=== PATIENT | male | born 1980 | race Two or more races ===

== ENCOUNTER 2024-07-08 14:48 | Outpatient (AMB) | payer MEDICAID, SELFPAY ==
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
--- OUTSIDE RECORDS SUMMARY | 2024-07-08 15:27 | XMS_ITS | Clinical Summary ---
Author Organization [facility] Address [address] [place] [address] Care Team Providers Care Multi Disciplined Language Analyst Name Role Phone Grace Marion PA-C Primary Care Provider [phone] Source Comments PLEASE NOTE, if this patient is a minor, it may be UNLAWFUL to discuss sensitive information that is contained in these records (such as FAMILY PLANNING, MENTAL HEALTH or SUBSTANCE ABUSE) with the minor patient's parent or other person without the patient's specific authorization.[facility] Allergies Active Allergy Reactions Criticality Noted Date Comments Cats 09/18/2022 [place] 08/17/2020 [place] Seeds Anaphylaxis 03/30/2015 Seen in ER 03/15/15 for allergic reaction after eating sun flower seeds. Discharge dx Anaphylaxis due to ingested food Medications EPINEPHrine (EPIPEN) 0.3 mg/0.3 mL pen injectorIndicati ons:Allergic, initial encounter Inject 0.3 mL into the muscle as needed for anaphylaxis 1 Each 3 1 Active naproxen (NAPROSYN) 500 mg tabletIndication s:Bilateral hip pain TAKE 1 TABLET BY MOUTH TWICE A DAY NEEDED FOR PAIN 60 Tablet 1 3 Active triamcinolone (KENALOG) 0.025 % creamIndications :Rash and nonspecific skin eruption Apply topically 2 (two) times daily 15 g 4 Active albuterol HFA 90 mcg/actuation inhalerIndicatio ns:Moderate persistent asthma without complication (HHS-HCC) Inhale 2 Puffs into the lungs every 4 (four) hours as needed for wheezing 1 Each 4 Active budesonide-formo teroL (SYMBICORT) 160-4.5 mcg/actuation inhalerIndicatio ns:Moderate persistent asthma without complication (HHS-HCC) Inhale 2 Puffs into the lungs 2 (two) times daily 10.2 g 3 4 Active montelukast (SINGULAIR) 10 mg tabletIndication s:Moderate persistent asthma without complication (HHS-HCC) TAKE 1 TABLET BY MOUTH EVERYDAY AT BEDTIME 90 Tablet 1 5 Active cyanocobalamin (VITAMIN B-12) 1,000 mcg tabletIndication s:Low serum vitamin B12 Take 1 Tablet by mouth once daily 90 Tablet 1 5 Active ferrous sulfate 325 mg (65 mg iron) tabletIndication s:Low iron stores Take 1 Tablet by mouth every other day 90 Tablet 5 Active Active Problems Problem Noted Date Diagnosed Date Prediabetes 05/31/2024 History of cocaine use: quit 03/202208/17/2020 Current moderate episode of major depressive disorder without prior episode (HCC-CMS) 08/17/2020 Moderate persistent asthma without complication (HHS-HCC) 08/17/2020 Hearing impaired 11/26/2012 Overview (11/26/2012): Since childhood Resolved Problems Problem Noted Date Diagnosed Date Resolved Date Fungus infection 04/02/2013 10/09/2016 Dry skin 04/02/2013 08/17/2020 GERD (gastroesophageal reflux disease) 11/26/2012 08/17/2020 Insomnia 10/20/2012 10/09/2016 ASTHMA MILD INTERMITTENT 10/20/2012 Encounters Date Type Department Care Team Description 05/31/2024 Results Follow-Up [address] [phone] Grace Marion PA-C Low serum vitamin B12 (Primary Dx); Low iron stores 05/28/2024 3:00 PM EDT Office Visit [address] [phone] Grace Marion PA-C Annual physical exam (Primary Dx); Moderate persistent asthma without complication; Vitamin D deficiency; Snoring disorder; Daytime sleepiness; Immunization due; Prediabetes from Last 3 Months Immunizations Immunization Administration Dates Next Due DTAP (DAPTACEL),5 PERTUSSIS ANTIGENS 08/05/2015, 08/05/2015 Hep B,adult,adjuvanted (HEPLISAV) 05/28/2024, INFLUENZA, SEASONAL, INJECTABLE 11/26/2012,03/05,01/27/2008 Influenza (FLUBLOK),recombinant,injectable,preservati ve Free 01/16/2024 Influenza, Whole 03/06/2006 PFIZER COVID VACCINE, PURPLE CAP, 12+ 11/28/2020 PNEUMOCOCCAL CONJUGATE PCV 20 (Prevnar) 05/29/19 25 PNEUMOCOCCAL POLYSACCHARIDE PPV23 (Pneumovax 23) 03/06/2006 Family History Medical History Relation Name Comments Diabetes Father Hypertension Father Relation Name Status Comments Brother Alive Father Mother Alive Sister Alive Social History Tobacco Use Types Packs/Day Years Used Date Smoking Tobacco: Never Smokeless Tobacco: Never Tobacco Cessation:Counseling Given: Yes Alcohol Use Standard Drinks/Week Comments Not Currently 0 (1 standard drink = 0.6 oz pur e alcohol) socially Social Connections Answer Date Recorded Connectedness 1 05/28/2024 Financial Resource Strain Answer Date R ecorded Financial Resource Strain 1 2024 Stress Answer Date Recorded Stress 1 05/28/2024 Physical Activity Answer Date Recorded Physical Activity 0 10/19/2018 Food Insecurity Answer Date Recorded Food 1 05/28/2024 Transportation Needs Answer Date Record ed Transportation 1 05/28/2024 Housing Stability Answer Date Recorded Housing 1 05/28/2024 Safety and Environment Answer Date Phong rded Safety 0 10/19/2018 Utilities Answer Date Recorded Utilities 1 05/28/2024 Employment Answer Date Recorded Stress 0 05/21/2023 Sex and Gender Information Value Date Recorded Sex Assigned at Male 10/01/2017 11:37 AM PDT Legal Sex Male 11:36 AM PDT Gender Identity Male 10/01/2017 11:37 AM PDT Sexual Orientation Straight 10/01/2017 11 :37 AM PDT Last Filed Vital Signs Vital Sign Reading Time Taken Comments Blood Pressure 102/80 05/28/2024 3:02 PM EDT Pulse 103 05/28/2024 3:02 PM EDT Temperature 36.7 ??C (98.1 ??F) 05/28/2024 3:02 PM ED T Respiratory Rate 16 05/28/2024 3:02 PM EDT Oxygen Saturation 97% 05/28/2024 3:02 PM EDT Inhaled Oxygen Concentration - - Weight 75.6 kg (166 lb 11.2 oz) 05/28/2024 3:02 PM EDT Height 167.6 cm (5' 6 ) 09/18/2022 5:11 PM EDT Body Mass Index 26.91 09/18/2022 5:11 PM EDT Plan of Treatment Health Maintenance Due Date Last Done Comments Anxiety Screening 1980 [id number] ( season) 2023 11/28/2020, 09/19/2020 CT Colonography 01/11/2024 Colonoscopy 01/11/2024 Colorectal Cancer Screening 01/11/2024 FIT/gFOBT 01/11/2024 Fecal DNA 01/11/2024 Flexible Sigmoidoscopy 01/11/2024 Alcohol and Drug Screen 03/03/2024 05/21/19 24, 09/18/2022, 08/17/2020, Additional history exists Depression Monitoring 08/28/2024 05/28/2024 , 01/16/2024, 10/24/2023, Additional history exists Syphilis Screening 08/30/2024 05/21/2023 Postponed from 05/20/2024 (Patient postponement) Annual Preventive Care Visit 05/28/2025 05/28/2024, 06/19/2018, 10/09/2016, Additional history exists Diabetes Screening 05/28/2025 05/28/2024, 0 05/28/2024, 05/21/2023, Additional history exists Hypertension Screening (#1) 05/28/2025 Tobacco Screening 05/28/2025 05/28/2024 Imm-DTaP/Tdap/Td (3 - Tdap) 08/04/2025 08/05/2015, 0 08/05/2015 Lipid Screening 05/28/2029 05/28/2024, 05/02, 08/17/2020, Additional history exists Hepatitis C Screening Completed 12/26/2014 HIV Screening Completed 06/19/2018 Imm-Influenza Completed 01/16/2024, 11/02, 03/05/2012, Additional history exists Imm-Hepatitis B Completed 05/28/2024, 01/16/2024 Imm-Pneumococcal Completed 05/28/2024, 03/06/2006 Procedures Procedure Name Priority Date/Time Associated Diagnosis Comments PROSTATE SPECIFIC ANTIGEN, FREE AND TOTAL Routine 05/28/2024 3:58 PM EDT VITAMIN D, 1,25-DIHYDROXY Routine 05/28/2024 3:58 PM EDT Vitamin D deficiency COMPREHENSIVE METABOLIC PANEL Routine 05/28/2024 3:58 PM EDT Prediabetes HGA1C W/EAG Routine 05/28/2024 3:58 PM EDT Prediabetes LIPIDS W RFLX TO DIRECT LDL Routine 05/28/2024 3:58 PM EDT Annual physical exam VITAMIN B12 & FOLATE Routine 05/28/2024 3:58 PM EDT Daytime sleepiness IRON, TIBC, FERRITIN PANEL Routine 05/28/2024 3:58 PM EDT Daytime sleepiness BLOOD COUNT COMPLETE AUTO&AUTO DIFRNTL WBC Routine 05/28/2024 3:58 PM EDT Annual physical exam RPR (MONITOR) W/REFL TITER Routine 05/21/2023 11:18 AM EDT Routine lab draw ANTIBODY HIV-1&HIV-2 SINGLE RESULT Routine 06/19/2018 12:15 PM EDT Routine general medical examination at a health care facility HEPATITIS A,B,C PANEL Routine 12/26/2014 1:57 PM EDT Routine general medical examination at a health care facility from Last 3 Months or Most Recently Relevant to Health Maintenance Results * (ABNORMAL) HGA1C W/EAG (05/28/2024 3:58 PM EDT) HEMOGLOBIN A1C 6.0(H) <5.7 % of total Hgb [facility] Comment: For someone without known diabetes, a hemoglobin A1c value between 5.7% and 6.4% is consistent with prediabetes and should be confirmed with a follow-up test. For someone with known diabetes, a value <7% indicates that their diabetes is well controlled. A1c targets should be individualized based on duration of diabetes, age, comorbid conditions, and other considerations. This assay result is consistent with an increased risk of diabetes. Currently, no consensus exists regarding use of hemoglobin A1c for diagnosis of diabetes for children. EAG (MG/DL) 126 mg/dL [facility] EAG (MMOL/L) 7.0 mmol/L [facility] Blood Blood / Unknown 05/28/2024 3 :58 PM EDT 05/28/2024 3:58 PM EDT Narrative [employer] - 06/04/2024 12:15 PM EDT FASTING:NO Grace Marion PA-C LAB - BLOOD DRAW Edited Resu lt - Final Performing Organization Address [facility] Co de Phone Number [employer] [address] [place] [phone], [facility] [address] [place] [phone] * (ABNORMAL) IRON, TIBC, FERRITIN PANEL (05/28/2024 3:58 PM EDT) FERRITIN 13(L) 38 - 380 ng/mL [facility] IRON, TOTAL 39(L) 50 - 180 mcg/dL [facility] IRON BINDING CAPACITY 383 250 - 425 mcg/dL (calc) [facility] % SATURATION 10(L) 20 - 48 % (calc) [facility] Blood Blood / Unknown 05/28/2024 3 :58 PM EDT 05/28/2024 3:58 PM EDT Narrative [employer] - 06/04/2024 12:15 PM EDT FASTING:NO Grace Marion PA-C LAB - BLOOD DRAW Final Resul t Performing Organization Address [facility] Co de Phone Number [employer] [address] [place] [phone], [employer] [facility] [address] [place] [address] * VITAMIN D, 1,25-DIHYDROXY (05/28/2024 3:58 PM EDT) [facility] VITAMIN D, 1, 25 (OH)2, TOTAL 28 18 - 72 pg/mL [employer]/ [employer] [place] VITAMIN D3, 1, 25 (OH)2 28 pg/mL [employer] [place] VITAMIN D2, 1, 25 (OH)2 <8 pg/mL [employer] [facility] [place] Comment: Vitamin D3, 1,25(OH)2 indicates both endogenous production and supplementation. Vitamin D2, 1,25(OH)2 is an indicator of exogenous sources, such as diet or supplementation. ??Interpretation and therapy are based on measurement of Vitamin D,1,25(OH)2, Total. This test was developed and its analytical performance characteristics have been determined by [facility] [place], [place]. It has not been cleared or approved by the FDA. This assay has been validated pursuant to the CLIA regulations and is used for clinical purposes. Blood Blood / Unknown 05/28/2024 3 :58 PM EDT 05/28/2024 3:58 PM EDT Narrative [employer] [place] - 06/04/2024 12:15 PM EDT FASTING:NO Grace Marion PA-C LAB - BLOOD DRAW Final Resul t [employer] [place] [address] [place], [place] , [employer] [place] [address] [place], [place] * LIPIDS W RFLX TO DIRECT LDL (05/28/2024 3:58 PM EDT) [facility] CHOLESTEROL, TOTAL 168 <200 mg/dL [employer] [facility] HDL CHOLESTEROL 51 > OR = 40 mg/dL [employer] [facility] TRIGLYCERIDES 90 <150 mg/dL [employer] [facility] LDL-CHOLESTEROL 99 99 mg/dL (calc) [employer] [facility] Comment: Reference range: <100 Desirable range <100 mg/dL for primary prevention; ?? <70 mg/dL for patients with CHD or diabetic patients with > or = 2 CHD risk factors. LDL-C is now calculated using the Ramón calculation, which is a validated novel method providing better accuracy than the Friedewald equation in the estimation of LDL-C. Bobo LARA et al. LOUANN. 2013;310(19): 1836-1642 (http://education.InterAtlas/faq/KVB937) CHOL/HDLC RATIO 3.3 <5.0 (calc) [facility] NON-HDL CHOLESTEROL 117 <130 mg/dL (calc) [facility] Comment: For patients with diabetes plus 1 major ASCVD risk factor, treating to a non-HDL-C goal of <100 mg/dL (LDL-C of <70 mg/dL) is considered a therapeutic option. Blood Blood / Unknown 05/28/2024 3 :58 PM EDT 05/28/2024 3:58 PM EDT Narrative [employer] - 06/04/2024 12:15 PM EDT FASTING:NO us Grace Marion PA-C LAB - BLOOD DRAW Final Resul t [employer] [address] [place] [phone], [facility] [address] [place] [phone] * (ABNORMAL) PROSTATE SPECIFIC ANTIGEN, FREE AND TOTAL (05/28/2024 3:58 PM EDT) TOTAL PSA 1.0 < OR = 4.0 ng/mL [facility] FREE PSA 0.1 ng/mL [employer] % FREE PSA 10(L) >25 % (calc) [facility] Comment: PSA(ng/mL) ?Free PSA(%) ? Estimated(x) Probability ? of Cancer(as%) 0-2.5 ?(*) ? Approx. 1 2.6-4.0(1) ? 0-27(2) ? 24(3) 4.1-10(4) ?0-10 ?56 ? 11-15 ? 28 ? 16-20 ? 20 ? 21-25 ? 16 ? >or =26 ? 8 >10(+) ? N/A ?>50 References:(1)Kellee:Urology 60: 469-474 (2002) ? (2)Donta.:J.Urol 168: 922-925 (2002) ?Free PSA(%) ?? Sensitivity(%) ??Specificity(%) ?< or = 25 ?85 ?19 ?< or = 30 ?93 ? 9 ? (3)Yumiko et al.:LOUANN 277: 1946-7806 (1996) ? (4)Catalona et al.:LOUANN 279: 4368-4628 (1997) (x)These estimates vary with age, ethnicity, family ?? history and ROB results. (*)The diagnostic usefulness of % Free PSA has not been ?? established in patients with total PSA below 2.6 ng/mL (+)In men with PSA above 10 ng/mL, prostate cancer risk is ?? determined by total PSA alone. The Total PSA value from this assay system is standardized against the equimolar PSA standard. The test result will be approximately 20% higher when compared to the WHO-standardized Total PSA (Siemens assay). Comparison of serial PSA results should be interpreted with this fact in mind. PSA was performed using the Genoveva Charo Immunoassay method. Values obtained from different assay methods cannot be used interchangeably. PSA levels, regardless of value, should not be interpreted as absolute evidence of the presence or absence of disease. 05/28/2024 3:58 PM EDT 05/28/2024 3:58 PM EDT Narrative [employer] - 06/04/2024 12:15 PM EDT FASTING:NO Grace Marion PA-C LAB - BLOOD DRAW Edited Resu lt - Final [employer] [address] [place] [phone], [facility] [address] [place] [phone] * (ABNORMAL) VITAMIN B12 & FOLATE (05/28/2024 3:58 PM EDT) VITAMIN B12 192(L) 200 - 1,100 pg/mL [facility] FOLATE, SERUM 7.4 5.5 ng/mL [facility] Comment: ? Reference Range ? Low: ? <3.4 ? Borderline: ?3.4-5.4 ? Normal: ?>5.4 Blood Blood / Unknown 05/28/2024 3 :58 PM EDT 05/28/2024 3:58 PM EDT Narrative [employer] - 06/04/2024 12:15 PM EDT FASTING:NO us Grace Marion PA-C LAB - BLOOD DRAW Edited Resu lt - Final [employer] [address] [address], [facility] [address] [place] [address] * (ABNORMAL) BLOOD COUNT COMPLETE AUTO&AUTO DIFRNTL WBC (05/28/2024 3:58 PM EDT) Pathologist [facility] WHITE BLOOD CELL COUNT 5.9 3.8 - 10.8 Thousand/ uL [facility] RED BLOOD CELL COUNT 5.31 4.20 - 5.80 Million/u L [facility] HEMOGLOBIN 13.5 13.2 - 17.1 g/dL [facility] HEMATOCRIT 42.4 38.5 - 50.0 % [facility] MCV 79.8(L) 80.0 - 100.0 fL [facility] MCH 25.4(L) 27.0 - 33.0 pg [facility] MCHC 31.8(L) 32.0 - 36.0 g/dL [facility] Comment: For adults, a slight decrease in the calculated MCHC value (in the range of 30 to 32 g/dL) is most likely not clinically significant; however, it should be interpreted with caution in correlation with other red cell parameters and the patient's clinical condition. RDW 16.3(H) 11.0 - 15.0 % [facility] PLATELET COUNT 302 140 - 400 Thousand/ uL [facility] MPV 10.3 7.5 - 12.5 fL [facility] ABSOLUTE NEUTROPHILS 3,469 1,500 - 7,800 cells/uL [employer] [facility] ABSOLUTE LYMPHOCYTES 1,310 850 - 3,900 cells/uL [employer] [facility] ABSOLUTE MONOCYTES 637 200 - 950 cells/uL [employer] [facility] ABSOLUTE EOSINOPHILS 413 15 - 500 cells/uL [employer] [facility] ABSOLUTE BASOPHILS 71 0 - 200 cells/uL [employer] [facility] NEUTROPHILS PCT 58.8 % QUES T [employer] [facility] LYMPHOCYTES 22.2 % [facility] [employer] [facility] MONOCYTES 10.8 % [facility] [employer] [facility] EOSINOPHILS 7.0 % [facility] AGNFitness PartnersS [employer] (TEN) [facility] BASOPHILS 1.2 % [facility] [employer] [facility] Blood Blood / Unknown 05/28/2024 3 :58 PM EDT 05/28/2024 3:58 PM EDT Narrative [facility] - 06/04/2024 12:15 PM EDT FASTING:NO Grace Marion PA-C LAB - BLOOD DRAW Edited Resu lt - Final [facility] [facility] [address] [address], [address] [facility] [address] [place] [address] * (ABNORMAL) COMPREHENSIVE METABOLIC PANEL (05/28/2024 3:58 PM EDT) GLUCOSE 62(L) 65 - 139 mg/dL [facility] Comment: ?Non-fasting reference interval UREA NITROGEN (BUN) 17 7 - 25 mg/dL [facility] CREATININE (blood) 0.94 0.60 - 1.29 mg/dL [facility] EGFR 102 > OR = 60 mL/min/1. 73m2 [facility] BUN/CREATININE RATIO SEE NOTE: 6 [facility] Comment: ?? Not Reported: BUN and Creatinine are within ?? reference range. ? SODIUM 139 135 - 146 mmol/L [facility] POTASSIUM 3.9 3.5 - 5.3 mmol/L [facility] CHLORIDE 101 98 - 110 mmol/L [facility] CARBON DIOXIDE 30 20 - 32 mmol/L [facility] CALCIUM 9.2 8.6 - 10.3 mg/dL [facility] PROTEIN, TOTAL 7.1 6.1 - 8.1 g/dL [employer] [facility] ALBUMIN 4.2 3.6 - 5.1 g/dL [employer] [facility] GLOBULIN 2.9 1.9 - 3.7 g/dL (calc) [employer] [facility] ALBUMIN/GLOBULI N RATIO 1.4 1.0 - 2.5 (calc) [employer] [facility] BILIRUBIN, TOTAL 0.5 0.2 - 1.2 mg/dL [employer] [facility] ALKALINE PHOSPHATASE 75 36 - 130 U/L [employer] [facility] AST 12 10 - 40 U/L [employer] [facility] ALT 13 9 - 46 U/L [employer] [facility] Blood Blood / Unknown 05/28/2024 3 :58 PM EDT 05/28/2024 3:58 PM EDT Narrative [employer] [facility] - 06/04/2024 12:15 PM EDT FASTING:NO Grace Marion PA-C LAB - BLOOD DRAW Edited Resu lt - Final Performing Organization Address City/[facility]/ZIP Co de Phone Number [employer] [facility] [address] [address], [place] [address] [phone] * RPR (MONITOR) W/REFL TITER (05/21/2023 11:18 AM EDT) RPR (MONITOR) W/REFL TITER NON-REACT GUERLINE NON-REACT GUERLINE [employer] [facility] Blood Blood / Unknown 05/21/2023 1 1:18 AM EDT 05/21/2023 11:18 AM EDT Narrative [facility] - 05/22/2023 11:44 AM EDT FASTING:YES Grace Marion PA-C LAB - BLOOD DRAW Edited Resu lt - Final Performing Organization Address City/[facility] Co de Phone Number [facility] [address] [address], [place] [address] [phone] * HIV-1 & HIV-2 ANTIBODIES (06/19/2018 12:15 PM EDT) HIV 1 AND 2 ANTIBODY SCREEN NEGATIVE NEGATIVE [facility] Comment: This assay is a 4th generation assay allowing for earlier detection of HIV infection by detecting the presence of the HIV-1 p24 antigen as well as the traditional antibodies to HIV type 1 (including group O) and type 2. ??Use of a 4th generation assay is the current CDC recommendation for HIV screening. Blood specimen (specimen) Blood / Unknown 06/19/2018 12:15 PM EDT 06/19/2018 12:53 PM EDT [facility] - 06/19/2018 4:55 PM EDT [facility] [employer], [place] [address] Commercial Loan Specialist - Mirna Rodriguez [place] [id number] ORD# [id number] Alessandra RAMOS LAB - BLOOD DRAW Final Result Performing Organization Address City/State/[facility] [place] [address], * HEPATITIS A,B,C PANEL (12/26/2014 1:57 PM EDT) Pathologist [facility] HEPATITIS B SURFACE ANTIGEN NEGATIVE NEGATIVE [facility] HEPATITIS C VIRUS DIAGNOSTIC NEGATIVE NEGATIVE [facility] HEPATITIS A ANTIBODY TOTAL NEGATIVE NEGATIVE [facility] HEPATITIS B CORE ANTIBODY NEGATIVE NEGATIVE [facility] HEPATITIS B SURFACE ANTIBODY NEGATIVE NEGATIVE [facility] Comment: Hepatitis B surface antibody testing performed at reference lab due to reagent backorder. Reference range: Negative: Inconsistent with immunity, less than 10 mIU/mL Positive: ? Consistent with immunity, greater than 9.9 mIU/mL Testing performed at: [employer] [address] [place] [id number] PHONE: Blood specimen (specimen) Blood / Unknown 12/26/2014 1:57 PM EDT 12/26/2014 2:01 PM EDT [facility] - 12/26/2014 5:17 PM EDT [facility] [address] [place] [address] PT [place] [id number] ORD# [id number] Alessandra RAMOS LAB - BLOOD DRAW Edited Result - Final [facility] [address] [place] [address], from Last 3 Months or Most Recently Relevant to Health Maintenance Insurance [facility] [place] MEDICAID DENTAL [address] [employer] Care Teams Multi Disciplined Language Analyst Relationship Specialty Start Date End Date Grace Marion PA-C [address] [place] [address] PCP - General Internal Medicine 03/09/20
== END 2024-07-08 16:02 | disposition home or self-care (01) ==
LOC: HO.HUSH 14:48
PROVIDERS: PCP Physician Assistant; Visit Provider Urology
DX: Z13.9 Encounter for screening, unspecified (principal)

== ENCOUNTER → 2024-07-08 14:48 | Outpatient (BNVA) | payer MEDICAID, SELFPAY | PROVIDERS: PCP Physician Assistant; Visit Provider Urology | DX: N40.1 Benign prostatic hyperplasia with lower urinary tract symptoms (principal); N13.8 Other obstructive and reflux uropathy | CPT/HCPCS: 81003; 99202 ==

== ENCOUNTER 2024-08-30 14:57 | Outpatient (REF) | payer MEDICAID, SELFPAY ==
--- NOTE | ~2024-08-30 | US_ITS ---
EXAMINATION: US RETROPERITONEUM HISTORY: N40.1 - Benign prostatic hyperplasia with lower urinary tract symptoms TECHNIQUE: Real-time grayscale ultrasound imaging of the kidneys was performed and images were reviewed. COMPARISON: There are no prior studies available for comparison. FINDINGS: Right kidney: The right kidney measures 10.3 x 5.0 x 5.1 cm. Renal parenchymal echotexture and thickness are normal. There are no masses. There is no hydronephrosis or renal calculi. Left Kidney: The left kidney measures 11.0 x 5.6 x 4.7 cm. Renal parenchymal echotexture and thickness are normal. There are no masses. There is no hydronephrosis or renal calculi. The urinary bladder is unremarkable. Bilateral ureteral jets are identified. Before voiding, the urinary bladder measured 7.8 x 6.1 x 7.3 cm, for an estimated volume of 180 mL. After voiding, the urinary bladder measured 3.9 x 1.9 x 3.2 cm, for an estimated volume of 12.2 mL. The prostate measures 3.6 x 3.1 x 3.9 cm, for an estimated volume of 22.4 mL. US/US retroperitoneal comp IMPRESSION: 1. Unremarkable retroperitoneal ultrasound. 2. Post void bladder residual of 12.2 mL. 3. Prostate volume of 22.4 mL. Electronically signed by: Stephen Wiseman MD 08/31/2024 06:59 AM EDT
--- OUTSIDE RECORDS SUMMARY | 2024-08-30 15:26 | XMS_ITS | Clinical Summary ---
Author Organization [facility] ity Address [address] [place] [address] Care Team Providers Care Type Copy Examiner Name Role Phone Unavailable Primary Care Provider Unavailabl e Social History Tobacco Use Types Packs/Day Years Used Date Smoking Tobacco: Never Assessed Sex and Gender Information Value Date Recorded Sex Assigned at Not on file Legal Sex Male 5:37 AM EST Gender Identity Not on file Sexual Orientation Not on file Plan of Treatment Health Maintenance Due Date Last Done Comments DTaP,Tdap,and Td Vaccines (1 - Tdap) 1998 Hepatitis B Vaccines (1 of 3 - 19+ 3-dose series) 1998 COVID-19 Vaccine ( - 2023-2 5 season) 2023 Influenza Vaccine (Season Ended) 2024 HIB Vaccines Aged Out No longer eligi ble based on patient's age to complete this topic HPV Vaccines Aged Out No longer eligi ble based on patient's age to complete this topic Hepatitis A Vaccines Aged Out No long er eligible based on patient's age to complete this topic IPV Vaccines Aged Out No longer eligi ble based on patient's age to complete this topic MMR Vaccines Aged Out No longer eligi ble based on patient's age to complete this topic Meningococcal ACWY Vaccine Aged Out N o longer eligible based on patient's age to complete this topic Meningococcal B Vaccine Aged Out No l onger eligible based on patient's age to complete this topic Pneumococcal Vaccine: Pediat rics (0 to 5 Years) and At-Risk Patients (6 to 64 Years) Aged Out No longer eligible b ased on patient's age to complete this topic RSV Immunization Patients Un manju 20 months Aged Out No longer eligible b ased on patient's age to complete this topic Varicella Vaccines Aged Out No longer eligible based on patient's age to complete this topic
== END 2024-08-30 14:58 | disposition home or self-care (01) ==
LOC: HO.US 14:57
PROVIDERS: PCP Physician Assistant; Visit Provider Urology
DX: N40.1 Benign prostatic hyperplasia with lower urinary tract symptoms (principal)
CPT/HCPCS: 76770

== ENCOUNTER → 2024-08-30 15:51 | Outpatient (BNV) | payer MEDICAID, SELFPAY | PROVIDERS: PCP Physician Assistant; Visit Provider Radiology Diagnostic Radiology | DX: N40.1 Benign prostatic hyperplasia with lower urinary tract symptoms (principal) | CPT/HCPCS: 76770 ==

== ENCOUNTER 2024-09-22 13:02 | Outpatient (REF) | payer MEDICAID, SELFPAY ==
--- OUTSIDE RECORDS SUMMARY | 2024-09-22 13:31 | XMS_ITS | Clinical Summary ---
Author Organization [facility] Address [address] [place] [address] Care Team Providers Care Pillow Agent Name Role Phone Grace Marion PA-C Primary Care Provider [phone] Source Comments PLEASE NOTE, if this patient is a minor, it may be UNLAWFUL to discuss sensitive information that is contained in these records (such as FAMILY PLANNING, MENTAL HEALTH or SUBSTANCE ABUSE) with the minor patient's parent or other person without the patient's specific authorization.[facility] Allergies Active Allergy Reactions Criticality Noted Date Comments Cats 09/18/2022 Ebro 08/17/2020 [place] Se[place] Anaphylaxis 03/30/2015 Seen in ER 03/15/15 [...] mcg/actuation inhalerIndicatio ns:Moderate persistent asthma without complication ([facility]) Inhale 2 Puffs into the lungs every [...] every other day 90 Tablet 5 Active ketoconazole (NIZORAL) 2 % shampooIndicatio ns:Tinea capitis Apply topically once daily as needed for itching. 120 mL 1 5 Active meclizine (ANTIVERT) 25 mg tabletIndication s:Benign paroxysmal positional vertigo due to bilateral vestibular disorder Take 1 Tablet by mouth once daily as needed for nausea. 90 Tablet 5 Active Active Problems Problem Noted Date Diagnosed Date Prediabetes 05/31/2024 History of cocaine use: quit 03/202208/17/2020 Current moderate episode of major depressive disorder without prior episode ([facility]) 08/17/2020 Moderate persistent asthma without complication ([facility]) 08/17/2020 Hearing impaired 11/26/2012 Overview (11/26/2012): Since childhood Resolved Problems Problem Noted Date Diagnosed Date Resolved Date Fungus infection 04/02/2013 10/09/2016 Dry skin 04/02/2013 08/17/2020 GERD (gastroesophageal reflux disease) 11/26/2012 08/17/2020 Insomnia 10/20/2012 10/09/2016 ASTHMA MILD INTERMITTENT 10/20/2012 Encounters Date Type Department Care Team Description 09/15/2024 10:40 AM EDT Office Visit [address] [phone] Leigh Valle RN 07/30/2024 4:20 PM EDT Office Visit [address] [phone] Grace Marion PA-C from Last 3 Months Immunizations Immunization Administration Dates Next Due DTAP (DAPTACEL),5 PERTUSSIS ANTIGENS 08/05/2015, 08/05/2015 Hep B,adult,adjuvanted (HEPLISAV) 05/28/2024, INFLUENZA, SEASONAL, INJECTABLE 11/26/2012,03/05,01/27/2008 Influenza (FLUBLOK),recombinant,injectable,preservati ve Free 01/16/2024 Influenza, Whole 03/06/2006 PFIZER COVID VACCINE, PURPLE CAP, 12+ 11/28/2020 PNEUMOCOCCAL CONJUGATE PCV 20 (Prevnar 20) 05/28 PNEUMOCOCCAL POLYSACCHARIDE PPV23 (Pneumovax 23) 03/06/2006 Family History Medical History Relation Name Comments Diabetes Father Hypertension Father Relation Name Status Comments Brother Alive Father Mother Alive Sister Alive Social History Tobacco Use Types Packs/Day Years Used Date Smoking Tobacco: Never Smokeless Tobacco: Never Tobacco Cessation:Counseling Given: Not Answered Alcohol Use Standard Drinks/Week Comments Not Currently 0 (1 standard drink = 0.6 oz pur e alcohol) socially Social Connections Answer Date Recorded How often do you feel lonely or isolated from th ose around you? 1 05/28/2024 Financial Resource Strain Answer Date R ecorded Hard to pay for: Food 1 05/28/2024 Stress Answer Date Recorded Do you feel these kinds of stress these days? 1 05/28/2024 Physical Activity Answer Date Recorded Physical Activity 0 10/19/2018 Food Insecurity Answer Date Recorded Hard to pay for: Food 1 05/28/2024 Transportation Needs Answer Date Record ed Hard to pay for: Transportation 1 05/28/2024 Housing Stability Answer Date Recorded Hard to pay for: Rent/Mortgage payment 1 05/28/2024 Safety and Environment Answer Date Phong rded Safety 0 10/19/2018 Utilities Answer Date Recorded Hard to pay for: Utilities 1 05/28 Employment Answer Date Recorded Stress 0 05/21/2023 Sex and Gender Information Value Date Recorded Sex Assigned at Male 10/01/2017 11:37 AM PDT Legal Sex Male 11:36 AM PDT Gender Identity Male 10/01/2017 11:37 AM PDT Sexual Orientation Straight 10/01/2017 11 :37 AM PDT Last Filed Vital Signs Vital Sign Reading Time Taken Comments Blood Pressure 116/78 07/30/2024 4:15 PM EDT Pulse 84 07/30/2024 4:15 PM EDT Temperature 37.1 C (98.7 F) 07/30/2024 4:15 PM EDT Respiratory Rate 16 07/30/2024 4:15 PM EDT Oxygen Saturation 97% 05/28/2024 3:02 PM EDT Inhaled Oxygen Concentration - - Weight 74.4 kg (164 lb) 07/30/2024 4:15 PM EDT Height 167.6 cm (5' 6 ) 09/18/2022 5:11 PM EDT Body Mass Index 26.47 09/18/2022 5:11 PM EDT Plan of Treatment Health Maintenance Due Date Last Done Comments Anxiety Screening [address] CT Colonography 01/11/2024 Colonoscopy 01/11/2024 Colorectal Cancer Screening 01/11/2024 FIT/gFOBT 01/11/2024 Fecal DNA 01/11/2024 Flexible Sigmoidoscopy 01/11/2024 Alcohol and Drug Screen 03/03/2024 05/21/19 24, 09/18/2022, 08/17/2020, Additional history exists Syphilis Screening 05/20/2024 05/21/2023 Depression Monitoring 08/28/2024 05/28/2024 , 01/16/2024, 10/24/2023, Additional history exists Imm-Influenza (#1) 2024 01/16/2024, 0 11/26/2012, 03/05/2012, Additional history exists [id number] ( season) 2024 11/28/2020, 09/19/2020 Postponed from 11/02/2023 (Patient postponement) Annual Wellness (Adult): Indicated (All Coverage) 05/28/2025 05/28/2024, 06/19/2018, 10/09/2016, Additional history exists Diabetes Screening 05/28/2025 05/28/2024, 0 05/28/2024, 05/21/2023, Additional history exists Tobacco Screening 05/28/2025 05/28/2024 Hypertension Screening (#1) 07/30/2025 Imm-DTaP/Tdap/Td (3 - Tdap) 08/04/2025 08/05/2015, 0 08/05/2015 Lipid Screening 05/28/2029 05/28/2024, 03, 08/17/2020, Additional history exists Hepatitis C Screening Completed 12/26/2014 HIV Screening Completed 06/19/2018 Imm-Hepatitis B Completed 05/28/2024, 01/16/2024 Imm-Pneumococcal Completed 05/28/2024, 03/06/2006 Procedures Procedure Name Priority Date/Time Associated Diagnosis Comments IMAGING SCANNED DOCUMENT 08/30/2024 3:00 AM EDT IMAGING SCANNED DOCUMENT 08/30/2024 3:00 AM EDT REFERRAL TO DERMATOLOGY Routine 08/26/2024 3:00 AM EDT Tinea capitis Disorder of scalp REFERRAL TO UROLOGY Routine 07/08/2024 3 :00 AM EDT Prostate cancer screening HGA1C W/EAG Routine 05/28/2024 3:58 PM EDT [...] Recently Relevant to Health Maintenance Results * IMAGING SCANNED DOCUMENT (08/30/2024 3:00 AM EDT) Only the most recent of2 resultswithin the time period is included. 08/30/2024 3:00 AM EDT Result [facility] SCAN IMAGING Final Result * REFERRAL TO DERMATOLOGY (08/26/2024 3:00 AM EDT) 08/26/2024 3:00 AM EDT Result [facility] Grace Marion PA-C REFERRAL Edited Resul t - Final * REFERRAL TO UROLOGY (07/08/2024 3:00 AM EDT) 07/08/2024 3:00 AM EDT Result [facility] REFERRAL Final Result * (ABNORMAL) HGA1C W/EAG (05/28/2024 3:58 PM EDT) HEMOGLOBIN A1C 6.0(H) <5.7 % of total Hgb [facility] Comment: For someone without known diabetes, a [...] diabetes for children. EAG (MG/DL) 126 mg/dL [facility] EAG (MMOL/L) 7.0 mmol/L [facility] Blood Blood / Unknown 05/28/2024 3 :58 PM EDT 05/28/2024 3:58 PM EDT Narrative [facility] - 06/04/2024 12:15 PM EDT FASTING:NO Result [facility] LAB - BLOOD DRAW Edited Resu lt - Final Performing Organization Address City/[facility]/ZIP Co de Phone Number [facility] [address] [address], [facility] [address] [address] * LIPIDS W RFLX TO DIRECT LDL (05/28/2024 3:58 PM EDT) Pathologist [facility] CHOLESTEROL, TOTAL 168 <200 mg/dL [facility] HDL CHOLESTEROL 51 > OR = 40 mg/dL [facility] TRIGLYCERIDES 90 <150 mg/dL [facility] LDL-CHOLESTEROL 99 99 mg/dL (calc) [facility] Comment: Reference range: <100 Desirable range <100 mg/dL for primary prevention; <70 mg/dL for patients with CHD or diabetic patients with > or = 2 CHD risk factors. LDL-C is now calculated using the Ramón calculation, which is a validated novel method providing better accuracy than the Friedewald equation in the estimation of LDL-C. Bobo SS et al. LOUANN. 2013;310(19): 2255-8163 (http://education.[employer]/faq/YKK812) CHOL/HDLC RATIO 3.3 <5.0 (calc) [facility] NON-HDL CHOLESTEROL 117 <130 mg/dL (calc) [facility] Comment: For patients with diabetes plus 1 major ASCVD risk factor, treating to a non-HDL-C goal of <100 mg/dL (LDL-C of <70 mg/dL) is considered a therapeutic option. Blood Blood / Unknown 05/28/2024 3 :58 PM EDT 05/28/2024 3:58 PM EDT Narrative [employer] [facility] - 06/04/2024 12:15 PM EDT FASTING:NO us Grace Marion PA-C LAB - BLOOD DRAW Final Resul t [facility] [address] [address], [facility] [address] [address] * RPR (MONITOR) W/REFL TITER (05/21/2023 11:18 AM EDT) Pathologist [facility] RPR (MONITOR) W/REFL TITER NON-REACT GUERLINE NON-REACT GUERLINE [facility] Blood Blood / Unknown 05/21/2023 1 1:18 AM EDT 05/21/2023 11:18 AM EDT Narrative [facility] - 05/22/2023 11:44 AM EDT FASTING:YES Grace Marion PA-C LAB - BLOOD DRAW Edited Resu lt - Final [facility] [address] [place] [address], [facility] [address] [address] * HIV-1 & HIV-2 ANTIBODIES (06/19/2018 12:15 PM EDT) [facility] HIV 1 AND 2 ANTIBODY SCREEN NEGATIVE NEGATIVE [facility] Comment: This assay is a 4th generation assay allowing for earlier detection of HIV infection by detecting the presence of the HIV-1 p24 antigen as well as the traditional antibodies to HIV type 1 (including group O) and type 2. Use of a 4th generation assay is the current CDC recommendation for HIV screening. Blood specimen (specimen) Blood / Unknown 06/19/2018 12:15 PM EDT 06/19/2018 12:53 PM EDT [facility] - 06/19/2018 4:55 PM EDT Currently, a member of [address] [address] Children Librarian - Mirna Rodriguez [place] [id number] ORD# [id number] [facility] LAB - BLOOD DRAW Final Result Performing Organization Address City/[facility]/ZIP Co de Phone Number [address] [address], * HEPATITIS A,B,C PANEL (12/26/2014 1:57 PM EDT) [facility] HEPATITIS B SURFACE ANTIGEN NEGATIVE NEGATIVE [facility] HEPATITIS C VIRUS DIAGNOSTIC NEGATIVE NEGATIVE [facility] HEPATITIS A ANTIBODY TOTAL NEGATIVE NEGATIVE [facility] HEPATITIS B CORE ANTIBODY NEGATIVE NEGATIVE [facility] HEPATITIS B SURFACE ANTIBODY NEGATIVE NEGATIVE [facility] Comment: Hepatitis B surface antibody testing performed at reference lab due to reagent backorder. Reference range: Negative: Inconsistent with immunity, less than 10 mIU/mL Positive: Consistent with immunity, greater than 9.9 mIU/mL Testing performed at: [facility] [address] [place] [address] PHONE: Blood specimen (specimen) Blood / Unknown 12/26/2014 1:57 PM EDT 12/26/2014 2:01 PM EDT [facility] - 12/26/2014 5:17 PM EDT [facility] [employer] [address] [place] [address] [place] [id number] ORD# [id number] [facility] LAB - BLOOD DRAW Edited Result - Final [facility] [address] [place] [address], from Last 3 Months or Most Recently Relevant to Health Maintenance Insurance [facility] [employer] MED[employer] DENTAL [address] [employer] Care Teams Pillow Agent Relationship Specialty Start Date End Date Grace Marion PA-C [address] [place] [id number] PCP - General Internal Medicine 03/09/20
--- OUTSIDE RECORDS SUMMARY | 2024-09-22 13:31 | XMS_ITS | Clinical Summary ---
Author Organization [facility] ity Address [address] [place] [address] Care Team Providers Care Fitness Instructor Name Role Phone Unavailable Primary Care Provider [...] Vaccine ( - 2023-2 5 season) 2023 Depression Screening 03/03/2024 Influenza Vaccine (#1) 2024 HIB Vaccines Aged Out No longer [...] 5 Years) and At-Risk Patients (6 to 49 Years) Aged Out No longer eligible b ased on patient's age to complete this topic RSV Immunization Patients Un manju 20 months Aged Out No longer eligible b ased on patient's age to complete this topic Varicella Vaccines Aged Out No longer eligible based on patient's age to complete this topic
--- OUTSIDE RECORDS SUMMARY | 2024-09-22 13:31 | XMS_ITS | Encounter Summary ---
Author Organization [facility] Address [address] [place] [address] Care Team Providers Care Machine Rebuilder Name Role Phone Unavailable Primary Care Provider Unavailabl e Encounter Details Date Type Department Care Team (Late st Contact Info) Description 09/21/2024 Population Health Risk Score [facility] (C3) Department [address] [facility] [address] [place] [address] Provider, Population Health Generic Social History Tobacco Use Types Packs/Day Years Used Date Smoking Tobacco: Never Assessed Sex and Gender Information Value Date Recorded Sex Assigned at Not on file Legal Sex Male 9:28 PM EDT Gender Identity Not on file Sexual Orientation Not on file documented as of this encounter Plan of Treatment Not on file documented as of this encounter Visit Diagnoses Not on filedocumented in this encounter
[2024-09-22 14:52] LABS: Prostate Specific Antigen 1.26 ng/mL (<0.05-4.0)
== END 2024-09-22 13:03 | disposition home or self-care (01) ==
LOC: HO.LAB 13:02
PROVIDERS: PCP Physician Assistant; Visit Provider Urology
DX: Z12.5 Encounter for screening for malignant neoplasm of prostate (principal); R97.20 Elevated prostate specific antigen [PSA]
CPT/HCPCS: 36415; 84153

== ENCOUNTER 2025-02-02 12:50 | Outpatient (AMB) | payer MEDICAID, SELFPAY ==
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
--- OUTSIDE RECORDS SUMMARY | 2025-02-02 15:11 | XMS_ITS | Clinical Summary ---
Author Organization [employer] Address [address] [place] [address] Care Team Providers Care Histology Technologist Name Role Phone Unavailable Primary Care Provider Unavailabl e Social History Tobacco Use Types Packs/Day Years Used Date Smoking Tobacco: Never Assessed Sex and Gender Information Value Date Recorded Sex Assigned at Not on file Legal Sex Male 9:28 PM EDT Gender Identity Not on file Sexual Orientation Not on file Plan of Treatment Health Maintenance Due Date Last Done Comments CT Colonography 1979 Colonoscopy 1979 Colorectal Cancer Screening 1979 Depression Screening 1979 FIT DNA/Cologuard 1979 FIT 1979 FOBT 1979 Lipid Panel 1979 SDOH Screening 1979 Sigmoidoscopy 1979 Disability Screening 1979 Alcohol/Substance Use Screening 1991 Tobacco Screening 1991 Family Planning (PISQ) 1994 Hepatitis C Screening 1997 COVID-19 Vaccine (2 - 2024- season) 2024 11/28/2020 Influenza Vaccine (#1) 2024 , 11/26/2012, 03/05/2012, Additional history exists DTaP/Tdap/Td Vaccines (2 - Tdap) 08/04/2025 08/05/2015 Zoster Vaccines (1 of 2) 2029 RSV Patients and Patients Aged 60 years or older (1 - 1-dose 75+ series) 2054 HIV Screening Completed 06/19/2018 Hepatitis B Vaccines Completed 05/28/2024, 01/16/20 24 Pneumococcal Vaccine: Pediatrics (0 to 5 Years) and At-Risk Patients (6 to 49) Years Completed 05/28/2024, 03/06/2006 HIB Vaccines Aged Out No longer eligi [...] patient's age to complete this topic Meningococcal Vaccine Aged Out No steven brianna eligible based on patient's age to complete this topic RSV under 20 months Aged Out No longe r eligible based on patient's age to complete this topic Rotavirus Vaccines Aged Out No longer eligible based on patient's age to complete this topic
== END 2025-02-02 14:43 | disposition home or self-care (01) ==
PROVIDERS: PCP Physician Assistant; Visit Provider Urology
DX: N40.1 Benign prostatic hyperplasia with lower urinary tract symptoms (principal); Z12.5 Encounter for screening for malignant neoplasm of prostate
CPT/HCPCS: 99213